=== PATIENT | male | born 1945 | race Caucasian/White ===

== ENCOUNTER 2024-03-10 11:44 | Emergency (ER) | payer MEDICARE, OTHER, SELFPAY ==
[2024-03-10] VITALS (9 sets, daily range): BP systolic 128–179; BP diastolic 62–82; PULSE 63–70; BMI 26.2
[2024-03-10 11:59] LABS: Glucose - Point of Care 101 mg/dl (70-99)
[2024-03-10 12:07] LABS: % Basophils 0.4 % (0-2); % Eosinophils 1.5 % (0-6); % Immature Granulocytes 0.4 % (0-0.5); % Lymphocytes 20.4 % (20.5-51.1); % Monocytes 10.3 % (1.7-9.3); Absolute Eosinophils 0.1 10^3/uL (0-0.7); Absolute Lymphocytes 1.7 10^3/uL (1.2-3.4); Absolute Monocytes 0.9 10^3/uL (0.1-0.6); Absolute Neutrophils 5.7 10^3/uL (1.4-6.5); Mean Corp Hgb Conc. 33.3 g/dL (33.0-37.0); Mean Corpuscular Hgb 33.2 pg (27.0-31.0); Mean Corpuscular Volume 99.6 fL (80.0-94.0); Mean Platelet Volume 9.9 fL (7.4-10.4); Nucleated Red Blood Cells % 0 % (-); Platelet Count 192 10^3/uL (130-400); Red Blood Cell Count 4.52 10^6/uL (4.70-6.10); Red Cell Dist. Width 12.7 % (11.5-14.5); White Blood Cell Count 8.6 10^3/uL (4.8-10.8)
[2024-03-10 12:23] LABS: ALT (SGPT) 25 U/L (0-50); AST (SGOT) 29 U/L (17-59); Albumin 4.5 g/dl (3.5-5.0); Alkaline Phosphatase 51 U/L (38-126); Blood Urea Nitrogen 21 mg/dl (9-20); Calcium 9.4 mg/dl (8.4-10.2); Carbon Dioxide 27 mmol/L (22-30); Chloride 102 mmol/L (98-107); Estimated Creatinine Clearance 72 ml/min; Glucose 104 mg/dl (70-99); Potassium 4.2 mmol/L (3.5-5.1); Sodium 136 mmol/L (135-145); Total Bilirubin 1.2 mg/dl (0.2-1.3); Total Protein 6.9 g/dl (6.3-8.2); eGFR > 60.00
[2024-03-10 12:34] LABS: Troponin I < 0.012 ng/ml
--- NOTE | 2024-03-10 13:18 | ED.GENMED ---
History of Present Illness
General
Chief Complaint: Numbness
Source: patient
Exam Limitations: none
Time Seen by Provider: 03/10/24 13:04
History of Present Illness
History of Present Illness:
78-year-old male with history of hypertension hyperlipidemia presents with onset of nausea lightheadedness and bilateral hand numbness and tingling that started around 1030 this morning. He was in his basement wrapping [employer] presents. There is
no associated headache chest pain abdominal pain. There is nausea without vomiting. He was given an antiemetic en route by EMS and states his nausea has improved. His numbness has also resolved. There is no slurred speech or facial droop. No
other complaints at this time
Past History
Past History
ED Past Medical History: GERD, HTN and Hypercholesterolemia
Phy Exam
Physical Exam
Physical Exam:
General: Well-appearing male no acute respiratory distress HEENT: Normocephalic atraumatic
Heart: Regular rate and rhythm
Lungs: Clear no wheeze
Abdomen is soft nontender nondistended no guarding rebound no bowel sounds
Neurologic exam: Alert and oriented no facial asymmetry or slurred speech. No droop of the face. No drift.
Extremities: No cyanosis or edema
Course
Orders/Labs/Results
Orders:
Orders
03/10/24 11:47
Electrocardiogram (*1) Urgent
Reason for Study: Fatigue / Weakness
EKG- Treatment ONCE
03/10/24 11:56
Complete Blood Count/With Diff Urgent
Comprehensive Metabolic Panel Urgent
Troponin I Urgent
03/10/24 13:18
Orthostatic VS- Treatment ONCE
03/10/24 14:23
Troponin I Urgent
03/10/24 14:25
EKG [Electrocardiogram (*1)] Urgent
Reason for Study: Fatigue / Weakness
EKG- Treatment ONCE
Abnormal Lab Results
03/10/24 03/10/24
11:56 11:57
RBC 4.52 L 10^6/uL
(4.70-6.10)
MCV 99.6 H fL
(80.0-94.0)
MCH 33.2 H pg
(27.0-31.0)
Absolute Monos (auto) 0.9 H 10^3/uL
(0.1-0.6)
Lymphocytes % 20.4 L %
(20.5-51.1)
Monocytes % 10.3 H %
(1.7-9.3)
BUN 21 H mg/dl
(9-20)
Glucose 104 H mg/dl
(70-99)
POC Glucose 101 H mg/dl
(70-99)
03/10/24 11:56
03/10/24 11:56
Vital Signs
Initial and Last Documented VS:
Initial Vital Signs
Temp Pulse Resp BP Pulse Ox
97.7 F 67 17 179/82 98
03/10/24 11:49 03/10/24 11:49 03/10/24 11:49 03/10/24 11:49 03/10/24 11:49
Last Documented Vital Signs
Temp Pulse Resp BP Pulse Ox
97.7 F 56 16 128/62 93
03/10/24 11:49 03/10/24 15:15 03/10/24 12:05 03/10/24 15:00 03/10/24 15:15
MDM/Problems Addressed
Differential Diagnosis Includes:
Patient with nausea bilateral hand paresthesias and lightheadedness earlier today symptoms mostly resolved. No chest pain. EKG through triage shows sinus rhythm without ischemic changes. Initial troponin undetectable. Labs reviewed otherwise and
are normal. Will repeat troponin. Differential could include ACS versus vasovagal response versus viral illness. Will check orthostatics as well
*Critical Care Note
Total Time (30-74mins, 75-104mins- exclusive of procedures): Not Applicable
Update Note
Update Note:
Patient reexamined no symptoms wants to go home repeat troponin undetectable. No arrhythmias on monitor. Labs reviewed without significant finding otherwise. Suspect possible vasovagal response from his nausea he was feeling. Stable for
discharge with follow-up with family doctor
ED Attending Note
-
Portions of this chart may have been created with voice recognition software.� Occasional wrong word or��sound alike� substitutions may have occurred due to the inherent limitations of voice recognition software.
Discharge Plan
Departure
Patient Disposition: Home (Routine Discharge)
Date of Disposition: 03/10/24
Time of Disposition: 16:23
Patient with high blood pressure during this ER visit?: No
Discharge Problem:
Nausea
Prescriptions:
No Action
atorvastatin 20 MG tablet
40 mg PO DAILY@1700
metoprolol tartrate 100 MG tablet
100 mg PO DAILY
fexofenadine [Cassidy] 180 MG tablet
180 mg PO PRN PRN (Reason: Allergies)
diphenhydramine HCl [Banophen] 25 MG capsule
25 mg PO HSPRN PRN (Reason: sleep)
cholecalciferol (vitamin D3) 2,000 UNITS tablet
2,000 units PO DAILY
ibuprofen [Advil Liqui-Gel] 200 MG capsule
200 mg PO Q4H PRN (Reason: pain)
omeprazole 40 MG capsule,delayed release(DR/EC)
40 mg PO PRN PRN (Reason: reflux)
lisinopril-hydrochlorothiazide 20-12.5 mg Tablet
1 tab PO DAILY
Referrals:
Amos Us DO [Family Provider] -
Activity Restrictions/Additional Instructions:
Rest. Drink plenty of fluids. Return if worse otherwise follow-up with your family doctor
Interventions
Interventions:
*Risk Screen - Suicide Last Done: 03/10/24 11:48
*General Assessment Last Done: 03/10/24 11:48
*Neglect/Abuse Screening Last Done: 03/10/24 11:48
ED- Fall Risk Assessment Last Done: 03/10/24 11:49
*ED COVID-19 Vaccine History Last Done: 03/10/24 11:48
ED- Neurological Assessment Last Done: 03/10/24 11:57
Discharge Date and Time
Print Language: DANISH
[2024-03-10 15:19] LABS: Troponin I < 0.012 ng/ml
== END 2024-03-10 16:44 | disposition home or self-care (01) ==
LOC: EMR 11:44
PROVIDERS: Physician Assistant; EMERGENCY PHYSICIAN Emergency Medicine; FAMILY PHYSICIAN Student in an Organized Health Care Education/Training Program
DX: R11.0 Nausea (principal); R42 Dizziness and giddiness; E78.00 Pure hypercholesterolemia, unspecified; I10 Essential (primary) hypertension; K21.9 Gastro-esophageal reflux disease without esophagitis
CPT/HCPCS: 99284; 80053; 82962; 84484; 85025; 93005